=== PATIENT | female | born 1965 | race American Indian/Alaskan Native ===

== ENCOUNTER 2018-06-29 14:40 | Emergency (ER) | payer OTHER ==
[2018-06-29 14:55] VITALS: BMI 32.3
[2018-06-29 14:56] VITALS: BP 141/83; PULSE 79; RESP 16; TEMP 98.5; O2SAT 99
--- NOTE | 2018-06-29 16:16 | RAD ---
Date of service: 06/29/2018 PROCEDURE: Left Ankle Radiographs. HISTORY: swelling COMPARISON: None available. FINDINGS: BONES: Bone alignment and mineralization are normal. There is no acute displaced fracture or bone destruction. There is a prominent plantar calcaneal spur. JOINTS: Normal. No osteoarthritis. Ankle mortise maintained. Talar dome intact SOFT TISSUES: There is moderate periarticular soft tissue swelling. OTHER FINDINGS: None. IMPRESSION: No acute fracture or dislocation. Moderate periarticular soft tissue swelling.
--- NOTE | 2018-06-29 16:43 | C.PDOC ---
History Of Present Illness Ptient c/o intermittent pain and swelling of the left ankle that gets worse for the last 2 weeks. Patient denies recent injury, but admits getting intermittent pain and swelling since 2008 after fall. Chief Complaint (Nursing): Lower Extremity Problem/Injury History Per: Patient History/Exam Limitations: no limitations Past Medical History Reviewed: Historical Data, Nursing Documentation, Vital Signs Vital Signs: Last Vital Signs Temp 98.5 F 06/29/18 14:53 Pulse 79 06/29/18 14:53 Resp 16 06/29/18 14:53 BP 141/83 06/29/18 14:53 Pulse Ox 99 06/29/18 14:53 - Medical History PMH: Gastritis, HTN Family History: States: Unknown Family Hx - Social History Hx Alcohol Use: No Hx Substance Use: No - Immunization History Hx Tetanus Toxoid Vaccination: Yes Hx Influenza Vaccination: No Hx Pneumococcal Vaccination: No Review Of Systems Except As Marked, All Systems Reviewed And Found Negative. Physical Exam - Physical Exam Appears: Well, Non-toxic, No Acute Distress Skin: Normal Color, Warm, No Rash Head: Atraumatic, Normacephalic Eye(s): bilateral: Normal Inspection Neck: No Midline Cervical Tenderness, No Paracervical Tenderness Extremity: Normal ROM, No Calf Tenderness, Swelling (b/l pedal edema, left more than right, mild tenderness of the left lateral malleolus, no erythema, no warmth, no open sores) ED Course And Treatment O2 Sat by Pulse Oximetry: 99 - Other Rad left ankle xray X-Ray: Viewed By Me, Read By Radiologist Interpretation: Accession No. : [id number]. Patient Name / ID : SHANTHI MOTA / [id number]. Exam Date : 06/29/2018 16:00:45 ( Approved ). Study Comment : Sex / Age : F / 53Y. Creator : Jia Syed MD. Dictator : Jia Syed MD. Keg Inspector : Archivist Military History : Jia Syed MD. Approver2 : Report Date : 06/29/2018 16:12:21. My Comment : . Date of service: 06/29/2018. PROCEDURE: Left Ankle Radiographs. HISTORY: swelling. COMPARISON: None available. FINDINGS: BONES: Bone alignment and mineralization are normal. There is no acute displaced fracture or bone destruction. There is a prominent plantar calcaneal spur. JOINTS: Normal. No osteoarthritis. Ankle mortise maintained. Talar dome intact. SOFT TISSUES: There is moderate periarticular soft tissue swelling. OTHER FINDINGS: None. IMPRESSION: No acute fracture or dislocation. Moderate periarticular soft tissue swelling. Progress Note: Ankle was haritha wraped. Patient was d/c home with PMD and Orthopedist follow up. Disposition - Disposition Referrals: Rui Dhillon III, MD [Staff Provider] - Disposition: HOME/ ROUTINE Disposition Time: 16:38 Condition: STABLE Additional Instructions: Follow up with Orthopedist within 1-2 days. Return to ED if feel worse. Prescriptions: Naproxen [Naprosyn] 1 tab PO BID PRN #25 tab PRN Reason: Pain Instructions: Swelling Forms: [employer] (Bel[place]ian) Print Language: CANADIAN - Clinical Impression Clinical Impression: Ankle swelling
== END 2018-06-29 16:47 | disposition home or self-care (01) ==
LOC: C.ER 14:40
DX: M79.89 Other specified soft tissue disorders (principal)

== ENCOUNTER 2018-10-04 15:45 | Outpatient (CLI) | payer OTHER | END 2018-10-04 15:46 | disposition home or self-care (01) | LOC: C.MAMMO 15:45 | DX: Z12.31 Encounter for screening mammogram for malignant neoplasm of breast (principal) ==